=== PATIENT | female | born 1965 | race Caucasian/White ===

== ENCOUNTER → 2019-09-13 | Outpatient (CLI) | payer OTHER ==
[~2019-09-13] MED LIST: ACCUNEB0.63 MG/3 INH; IMITREX 50 MG T50 MG PO; LORTAB 5-500 T1 EAC1; NASONEX17 GM NASAL; PRILOSEC 20 MG20 MG PO; ULTRAM 50MG TAB50 MG PO
== END ==
LOC: CAT 07:39
DX: Z13.6 Encounter for screening for cardiovascular disorders (principal); E78.00 Pure hypercholesterolemia, unspecified; I25.10 Atherosclerotic heart disease of native coronary artery without angina pectoris